=== PATIENT | female | born 1945 | race Caucasian/White ===

== ENCOUNTER 2018-04-08 21:37 | Inpatient (IN) | payer OTHER ==
[~2018-04-08] VITALS: Ht 167.6 cm; Wt 49.9 kg
--- NOTE | 2018-04-09 00:10 | NUR ---
GPS-RN ADMITTED THIS 73-Y/O FEMALE, FROM [facility]. ON 5150 FOR DTS/GD, PER HOLD PATIENT VERBALIZED TO HER HAIRDRESSER THAT SHE DOESN'T WANT TO LIVE ANYMORE". UPON FACE TO FACE ASSESSMENT, PATIENT APPEARS TO BE ALERT, ORIENTED X1-2, CONFUSED, DEPRESSED. NO ACUTE DISTRESS NOTED. CONTINENT OF BOWEL AND BLADDER. NO C/O PAIN OR DISCOMFORT AT THIS TIME. DENIES ANY SI/HI/ AT THIS TIME. BELONGINGS INVENTORIED AND CHECKED FOR CONTRABAND. PATIENT REFUSED TO SIGN PAPER WORKS. PATIENT IS UNDER THE PSYCHIATRIC CARE OF DR. AARON, ORDERS OBTAINED, AND UNDER THE MEDICAL CARE OF DR. EMERSON, NOTIFIED OF ADMISSION. SKIN BODY ASSESSMENT DONE. MRSA SCREENING DONE. BED LOCKED AND PLACED IN LOWEST POSITION. ROOM SAFETY CHECKED. FALL PREVENTION PROGRAM MAINTAINED. WILL CONTINUE TO MONITOR Q15MIN ROUNDS FOR SAFETY AND BEHAVIOR.
[2018-04-09 00:12] VITALS: BP 136/74
[2018-04-09] MEDS ORDERED: CEPH-570 PO (00:29)
[2018-04-09] MEDS ORDERED: MAGNESIUM HYDROXIDE 30 ML UDC PO PRN (00:30)
[2018-04-09] MEDS ORDERED: MAG HYDROX/AL HYDROX/SIMETH 30 ML UDC PO PRN (00:30)
[2018-04-09] MEDS ORDERED: ACETAMINOPHEN 325 MG TABLET PO PRN (00:30)
[2018-04-09] MEDS ORDERED: ALEN70TA45 PO (00:33)
[2018-04-09] MEDS ORDERED: TRAM50TA2 PO (00:35)
[2018-04-09 08:00] VITALS: BP 128/84
[2018-04-09 16:00] VITALS: BP 130/91
[2018-04-09 20:33] VITALS: BP 136/86
[2018-04-09] MEDS: CEPHALEXIN MONOHYDRATE 500 MG CAPSULE PO SCH (22:02)
[2018-04-10 07:53] LABS: BASOPHILS % (AUTO) 0.8 % (0.0-2.0); EOSINOPHILS % (AUTO) 1.7 % (0.0-6.0); HEMATOCRIT 36 % (33-45); HEMOGLOBIN 11.9 g/dL (11.5-14.8); LYMPHOCYTES # (AUTO) 1.3 /CMM (0.8-4.8); MEAN CORPUSCULAR HEMOGLOBIN 32 PG (26.0-33.0); MEAN CORPUSCULAR HGB CONC 33 g/dl (31.0-36.0); MEAN CORPUSCULAR VOLUME 96 fL (82-100); MONOCYTES # (AUTO) 0.3 /CMM (0.1-1.30); MONOCYTES % (AUTO) 9.3 % (2.0-12.0); NEUTROPHILS # (AUTO) 1.5 /CMM (1.8-8.9); NEUTROPHILS % (AUTO) 47.2 % (43.0-81.0); PLATELET COUNT (AUTO) 304 /CMM (150-450); RED BLOOD CELL COUNT(AUTO) 3.71 MIL/uL (4.0-5.2); WHITE BLOOD COUNT (AUTO) 3.1 K/uL (4.3-11.0)
[2018-04-10 07:57] LABS: ALANINE AMINOTRANSFERASE 16 U/L (12-78); ALBUMIN 3.5 g/dL (3.4-5.0); ALKALINE PHOSPHATASE 60 U/L (46-116); ASPARTATE AMINOTRANSFERASE 25 U/L (15-37); BILIRUBIN,TOTAL 0.8 mg/dL (0.2-1.0); CALCIUM, SERUM 10.5 mg/dL (8.5-10.1); CARBON DIOXIDE 27 mmol/L (21-32); CHLORIDE 106 mmol/L (98-107); CREATININE 0.8 mg/dL (0.6-1.3); GLUCOSE 122 mg/dL (74-106); POTASSIUM 3.6 mmol/L (3.5-5.1); SODIUM SERUM 140 mmol/L (136-145); TOTAL PROTEIN, SERUM 7.5 g/dL (6.4-8.2); UREA NITROGEN, BLOOD 9 mg/dL (7-18)
[2018-04-10 07:58] LABS: CHOLESTEROL 184 mg/dL (<200); HDL CHOLESTEROL 69 mg/dL (40-60); LDL 103 mg/dL (0-99); TRIGLYCERIDES 127 mg/dL (30-150)
[2018-04-10 08:00] VITALS: BP 136/72
[2018-04-10] MEDS: CEPHALEXIN MONOHYDRATE 500 MG CAPSULE PO SCH ×3 (08:50→21:02)
--- NOTE | 2018-04-10 14:49 | NUR ---
VICTORINO called Catherine ([phone]) from [facility] and discussed that a review needs to left on her voicemail tomorrow to get more days authorized.
--- NOTE | 2018-04-10 15:53 | NUR ---
Initial Discharge Plan: Pt currently resides alone in a house located at [address] [place] [address]. Per pt, she would like to return to her home eventually. VICTORINO will work with the pt and the MD regarding appropriate discharge planning. SW will form a safe and proper discharge.
--- NOTE | 2018-04-10 15:59 | NUR ---
SW called the pt's daughter, Nenita ([phone]), and left a message.
[2018-04-10 16:00] VITALS: BP 140/71
--- NOTE | 2018-04-10 16:05 | NUR ---
VICTORINO called Andrey Fischer ([phone]), [facility] aftercare coordinator, and left a message for him on his voicemail.
[2018-04-10 18:23] LABS: APPEARANCE,URINE SL CLOUDY (CLEAR); BILIRUBIN,URINE NEGATIVE (NEGATIVE); BLOOD, URINE TRACE-INTA Ery/uL (NEGATIVE); COLOR,URINE YELLOW (YELLOW); KETONES,URINE NEGATIVE (NEGATIVE); LEUKOCYTE ESTERASE ,URINE 3+ (NEGATIVE); NITRITE, URINE NEGATIVE (NEGATIVE); PROTEIN,URINE TRACE mg/dl (NEGATIVE); UGLUCOSE NEGATIVE (NEGATIVE); UROBILINOGEN,URINE 0.2 EU/dL (0.2)
[2018-04-10 18:28] LABS: BACTERIA,URINE Moderate /HPF (None Seen); CALCIUM OXALATE CRYSTALS,UR Few /HPF (None Seen); SQUAMOUS EPITHELIAL CELL,UR Few /HPF (None Seen); WBC,URINE 51-80 /HPF (0-3)
--- NOTE | 2018-04-10 18:56 | NUR ---
GPS/RN-NOTES HOISTING ENGINE OPERATOR AIMEE MADE AWARE OF UA RESULTS WITH NNO.
--- NOTE | 2018-04-10 19:40 | NUR ---
GPS RN NOTES RECEIVED IN THE DINING ROOM,SITTING QUIETLY ON CHAIR AT THE CORNER,ISOLATE HERSELF BUT ABLE TO COMMUNICATE NEEDS.AMBULATE WITH STEADY GAIT.WILL CONTINUE TO MONITOR BEHAVIOR.
[2018-04-10 20:00] VITALS: BP 147/87
[2018-04-10 20:49] VITALS: BP 147/87
[2018-04-10] MEDS ORDERED: NITROFURANTOIN/NITROFURAN MAC 100 MG CAPSULE PO SCH (21:00)
--- NOTE | 2018-04-10 22:00 | NUR ---
GPS RN NOTES SPOKE TO DR TAPIA,MADE AWARE,PATIENT ON TWO PO ANTIBIOTICS FOR UTI,WITH ORDER TO DC MACROBID AFTER 1 ST DOSE,NOTED AND CARRIED OUT.
[2018-04-11 08:00] VITALS: BP 148/87
[2018-04-11] MEDS: CEPHALEXIN MONOHYDRATE 500 MG CAPSULE PO SCH ×2 (08:15→21:12)
[2018-04-11] MEDS: TRAMADOL HCL 50 MG TABLET PO PRN (08:43)
--- NOTE | 2018-04-11 10:06 | NUR ---
Andrey Fischer ([phone]), N aftercare coordinator, called the SW and faxed over a list of physicians for the SW to set a follow up appointment for once the pt is being discharged.
--- NOTE | 2018-04-11 10:07 | NUR ---
Nenita Cyril ([phone]), pt's daughter, called the SW and discussed that the discharge plan would consist of the pt being discharged home because the pt lives with her daughter and granddaughter.
[2018-04-11 16:00] VITALS: BP 134/76
[2018-04-11 16:22] VITALS: BP 134/76
[2018-04-11] MEDS: ENSURE ENLIVE 237 ML LIQUID (VANILLA) PO SCH (17:00)
[2018-04-11 20:15] VITALS: BP 142/89
--- NOTE | 2018-04-11 20:32 | NUR ---
GPS RN NOTE: RECEIVED PATIENT STANDING IN ROOM DOORWAY. ALERT AND ORIENTED X1. DENIED SI, HI, OR HALLUCINATIONS. GUARDED WITH POOR EYE CONTACT, DID NOT ENGAGE WHEN CONVERSATION INITIATED, WENT TO ROOM AND SHUT DOOR. PATIENT WAS IN NO APPARENT DISTRESS. CURRENTLY DAYROOM QUIETLY WATCHING TV. WILL CONTINUE TO MONITOR Q 15 MINUTES FOR COMFORT AND SAFETY.
[2018-04-11] MEDS ORDERED: MIRTAZAPINE 15 MG TABLET PO SCH (22:00)
[2018-04-12] MEDS: CEPHALEXIN MONOHYDRATE 500 MG CAPSULE PO SCH ×2 (08:35→20:33)
[2018-04-12] MEDS: ENSURE ENLIVE 237 ML LIQUID (VANILLA) PO SCH ×2 (09:00→17:00)
[2018-04-12 09:13] VITALS: BP 117/75
--- NOTE | 2018-04-12 09:33 | NUR ---
VICTORINO called Catherine ([phone]) from [facility] and left a review for the pt on her voicemail.
--- NOTE | 2018-04-12 13:39 | NUR ---
Catherine ([phone]) from [facility] called the SW and asked questions regarding the pt such as why her hold became extended, when is her hearing scheduled for and what happened with the neurology consult. The SW answered all of her questions and then faxed the neurology consultation notes to the number [phone].
--- NOTE | 2018-04-12 13:41 | NUR ---
VICTORINO called Nenita Nam ([phone]), pt's daughter, and left her a message explaining the new developments with the pt. The SW informed Nenita that the pt's hold became extended and that the psychiatrist has not determined a discharge date yet.
[2018-04-12] MEDS: TRAMADOL HCL 50 MG TABLET PO PRN (13:43)
--- NOTE | 2018-04-12 13:46 | NUR ---
GPS/RN-NOTES PATIENT C/O OF NECK PAIN,PLANT WRAPPER ASSESS PATIENT NECK,NO REDNESS OR INJURY NOTED. PATIENT ABLE TO MOVE FROM RIGHT TO LEFT. TRAMADOL HCL 50 MG 1 TAB. P.O GIVEN PRN ORDER. WILL CONT. MONITORING
--- NOTE | 2018-04-12 14:29 | NUR ---
Catherine ([phone]) from [facility] called the SW and stated that the pt is authorized for inpatient stay until April 16 and a review will be due that day on Catherine's voicemail.
[2018-04-12 16:00] VITALS: BP 130/80
--- NOTE | 2018-04-12 17:32 | NUR ---
GPS/RN-NOTES PATIENT REFUSED ENSURE DRINK DESPITE ENCOURAGEMENT. STATED" I WILL NOT DRINK IT, TAKE IT AWAY". OFFERED X3.
[2018-04-12 20:00] VITALS: BP 131/66
[2018-04-12] MEDS: MIRTAZAPINE 15 MG TABLET PO SCH (21:08)
[2018-04-12] MEDS: ATORVASTATIN 10 MG TABLET PO SCH (21:09)
[2018-04-12] MEDS: TEMAZEPAM 7.5 MG CAPSULE PO PRN (22:38)
--- NOTE | 2018-04-12 22:38 | NUR ---
TEMAZEPAM 7.5 MG CAP 1 PO GIVEN FOR SLEEP PER PATIENT'S REQUEST.
[2018-04-13] MEDS ORDERED: ALENDRONATE 70 MG TABLET PO SCH (07:30)
[2018-04-13 08:00] VITALS: BP 126/68
--- NOTE | 2018-04-13 08:45 | NUR ---
VICTORINO called Nenita Nam ([phone]), pt's daughter, and left her a message stating that the pt is covered until Monday and that a review will be due to her insurance that day which will determine if the pt gets authorized for more inpatient days or if she will be discharged.
[2018-04-13] MEDS: CEPHALEXIN MONOHYDRATE 500 MG CAPSULE PO SCH ×2 (08:48→21:02)
[2018-04-13] MEDS: ENSURE ENLIVE 237 ML LIQUID (VANILLA) PO SCH ×2 (09:32→17:00)
[2018-04-13 16:16] VITALS: BP 119/61
--- NOTE | 2018-04-13 17:12 | NUR ---
GPS/RN-NOTES PATIENT REFUSED ENSURE DRINK DESPITE EXPLANATION RISK AND BENEFITS . PATIENT STATED" I DON'T DRINK THAT I WILL JUST THROW THEM IN THE TRASH".
[2018-04-13 20:00] VITALS: BP 108/59
[2018-04-13] MEDS: TEMAZEPAM 7.5 MG CAPSULE PO PRN (21:03)
[2018-04-13] MEDS: ARIPIPRAZOLE 5 MG TABLET PO SCH (21:44)
[2018-04-13] MEDS: MIRTAZAPINE 15 MG TABLET PO SCH (21:45)
[2018-04-13] MEDS: ATORVASTATIN 10 MG TABLET PO SCH (21:46)
[2018-04-14 08:00] VITALS: BP 111/63
[2018-04-14] MEDS: CEPHALEXIN MONOHYDRATE 500 MG CAPSULE PO SCH ×2 (09:00→09:36)
[2018-04-14] MEDS: ENSURE ENLIVE 237 ML LIQUID (VANILLA) PO SCH ×2 (09:36→17:15)
--- NOTE | 2018-04-14 13:30 | NUR ---
dr. tom in to see pt.
[2018-04-14 16:43] VITALS: BP 119/67
--- NOTE | 2018-04-14 19:40 | NUR ---
GPSRN SEEN WALKING OUTSIDE ROOM WITH LEFT FOOT SLIGHTLY BLEEDING. SITE CHECKED. ASSISTED BACK TO BED, SITE CLEANSED WITH IODINE AND COVERED WITH BANDAID. SMALL SCAB CAME OFF. SOCKS ENCOURAGED TO USE TO PREVENT FURTHER INFECTION. BEHAVIOR ACCEPTABLE, COOPERATIVE. SLIGHTLY ANXIOUS. KEPT COMFORTABLE. SAFETY PRECAUTIONS INSTRUCTED, WELL UNDERSTOOD. CLOSELY WATCHED
[2018-04-14 20:00] VITALS: BP 135/85
[2018-04-14] MEDS: ARIPIPRAZOLE 5 MG TABLET PO SCH ×2 (22:00→22:07)
[2018-04-14] MEDS: ATORVASTATIN 10 MG TABLET PO SCH ×2 (22:00→22:07)
[2018-04-14] MEDS: MIRTAZAPINE 15 MG TABLET PO SCH ×2 (22:00→22:07)
--- NOTE | 2018-04-14 22:50 | NUR ---
GPSRN CHANGED MIND, REFUSED TO TAKE MEDS FOR TONIGHT. MEDS WASTED. WENT BACK TO SLEEP, DOES NOT WANT TO BE BOTHERED. CLOSELY WATCHED
--- NOTE | 2018-04-15 06:35 | NUR ---
GPSRN REMAINS UNCHANGED. FAIR AMOUNT OF SLEEPING HOURS.
[2018-04-15 08:00] VITALS: BP 110/61
[2018-04-15] MEDS: ENSURE ENLIVE 237 ML LIQUID (VANILLA) PO SCH ×2 (10:08→17:33)
[2018-04-15] MEDS: TRAMADOL HCL 50 MG TABLET PO PRN ×2 (10:11→17:32)
--- NOTE | 2018-04-15 10:11 | NUR ---
RN NOTES ADMINISTERED ULTRAM 50 MG PO PRN FOR GENERALIZED PAIN 6/10 PER PATIENT REQUEST, V/S TAKEN STABLE, CONTINUED MONITORING.
[2018-04-15 16:00] VITALS: BP 119/58
--- NOTE | 2018-04-15 17:32 | NUR ---
RN NOTES ADMINISTERED ULTRAM 50 MG PO PRN FOR GENERALIZED PAIN 04/10 PER PATIENT REQUEST, V/S STABLE BP-119/58, P-71, CONTINUED MONITORING.
[2018-04-15 20:12] VITALS: BP 101/66
[2018-04-15] MEDS: ARIPIPRAZOLE 5 MG TABLET PO SCH (21:15)
[2018-04-15] MEDS: ATORVASTATIN 10 MG TABLET PO SCH (21:16)
[2018-04-15] MEDS: TEMAZEPAM 7.5 MG CAPSULE PO PRN ×2 (21:16→22:39)
[2018-04-15] MEDS: MIRTAZAPINE 15 MG TABLET PO SCH (21:16)
--- NOTE | 2018-04-15 21:16 | NUR ---
TEMAZEPAM 7.5 MG CAP 1 PO GIVEN. Addendum: 04/15/18 at 2154 by JOSEPH PANTOJA RN PATIENT REFUSED TEMAZEPAM 7.5 MG TONIGHT, OFFERED X2, STILL REFUSED. Addendum: 04/15/18 at 2240 by JOSEPH PANTOJA RN PATIENT CHANGED HER MIND, APPROACHED NJonathan MOCTEZUMA AND REQUESTED FOR R SLEEPING MEDICATION. TEMAZEPAM 7.5 MG CAP 1 PO GIVEN.
--- NOTE | 2018-04-15 21:55 | NUR ---
PATIENT HER NIGHT ROUTINE MEDICATIONS, OFFERED X2, STILL REFUSED.
[2018-04-16 09:11] VITALS: BP 119/65
[2018-04-16] MEDS: ENSURE ENLIVE 237 ML LIQUID (VANILLA) PO SCH ×2 (09:25→17:12)
--- NOTE | 2018-04-16 09:52 | NUR ---
VICTORINO called Catherine ([phone]) from [facility] and left a review for the pt on her voicemail.
--- NOTE | 2018-04-16 11:25 | NUR ---
Catherine ([phone]) from [facility] called the SW and stated that she did not see a need for the pt to remain at the inpatient level. She stated that she wants a more concrete reason from the psychiatrist or she will not be authorized starting tomorrow.
[2018-04-16 16:00] VITALS: BP 131/80
--- NOTE | 2018-04-16 16:18 | NUR ---
VICTORINO called Nenita Nam ([phone]), pt's daughter, and left a message that the pt will be discharged today.
--- NOTE | 2018-04-16 16:19 | NUR ---
VICTORINO called Catherine ([phone]) from [facility] and informed her that the pt is being discharged today.
--- NOTE | 2018-04-16 16:22 | NUR ---
Discharge note: Pt is being discharged home to [address] [place] [id number]. She will continue to live with her daughter, Nenita ([phone]) and her granddaughter, Manisha. Pt will be picked up by her grandson, Magen ([phone]), around 7-8pm. Upon discharge, the pt appeared to have a euthymic mood and a euphoric affect. She stated that she was excited to be going home before her grandsons baby is born. Pt was referred to be under the care of psychiatrist, Dr. Nenita Raza, located at [address], [address], [place], [place]; ([phone]) and lan support specialist, Dr. Regina Cisse, located at [address] [place] [address]; ([phone]). These two healthcare professionals were referred by her insurance company, [employer] [facility].
--- NOTE | 2018-04-16 19:30 | NUR ---
DISCHARGE NOTES PATIENT DISCHARGE AT THIS TIME GOING HOME WITH HOME HEALTH. PATIENT MED COMPLIANT, V/S STABLE, MEDICALLY STABLE, NO COMPLAINING OF PAIN AT THIS TIME. PATIENT DENIED SI/HI/AVH AT THIS TIME. MED RECONCILIATION AND DISCHARGE ORDER REVIEWED AND EXPLAINED TO PATIENT AND GRANDSON NAME ILDA. GRANDSON VERBALIZED UNDERSTANDING. BELONGING RETURNED BACK TO THE PATIENT. PATIENT WILL FOLLOW PRIMARY ASSISTANT SUPERINTENDENT FOR CURRICULUM, AND PSYCHIATRIST. PATIENT SIGN PAPERWORK, PICTURE TAKEN, PRESCRIPTION GIVEN TO THE GRANDSON. ESCORTED PATIENT TO THE LOBBY FOR SAFETY. PATIENT FISH PITCHER BY GRANDSON NAME TIFF PHONE #.
--- NOTE | 2018-04-17 09:04 | NUR ---
VICTORINO faxed a referral to [facility] at ([phone]) to set up home health as requested by Dr. Silva.
== END 2018-04-16 19:30 | disposition home health service (06) | DRG 885 ==
LOC: GPS 04-09 00:03
PROVIDERS: ADMIT Psychiatry & Neurology Psychiatry; ATTEND Psychiatry & Neurology Psychiatry
DX: F33.2 Major depressive disorder, recurrent severe without psychotic features (principal); G93.41 Metabolic encephalopathy; N39.0 Urinary tract infection, site not specified; E44.0 Moderate protein-calorie malnutrition; R45.851 Suicidal ideations; F29 Unspecified psychosis not due to a substance or known physiological condition; F41.9 Anxiety disorder, unspecified; F03.90 Unspecified dementia, unspecified severity, without behavioral disturbance, psychotic disturbance, mood disturbance, and anxiety; Z73.6 Limitation of activities due to disability; E78.5 Hyperlipidemia, unspecified; E83.52 Hypercalcemia; M81.0 Age-related osteoporosis without current pathological fracture
CPT/HCPCS: 36415; 70450-TC; 80053-TC; 80061-TC; 81000-TC; 84443-TC; 85025-TC; 87081-TC; 87086-TC